=== PATIENT | male | born 1965 | race Two or more races ===

== ENCOUNTER 2019-04-09 08:10 | Emergency (ER) | payer SELFPAY ==
[~2019-04-09] VITALS: Ht 152.4 cm; Wt 88.5 kg
[2019-04-09 08:13] VITALS: Ht 152.4 cm; Wt 88.5 kg
[2019-04-09 08:57] LABS: BASOPHIL % 0.7 % (0-2); PLATELET COUNT 149 x10^3mcL (130-400)
[2019-04-09 08:58] LABS: RED CELL DISTRIBUTION WIDTH 15.3 % (11.5-14.5)
[2019-04-09 08:59] LABS: CALCIUM 8.5 mg/dL (8.5-10.1); CARBON DIOXIDE 34.4 mmol/L (21-32); CHLORIDE SERUM 104 mmol/L (98-107); CREATININE SERUM 0.9 mg/dL (0.7-1.3); GFR1 > 60 mL/min; GLUCOSE SERUM 98 mg/dL (74-106); POTASSIUM SERUM 4.2 mmol/L (3.5-5.1); SODIUM SERUM 139 mmol/L (136-145)
[2019-04-09 09:04] LABS: ALBUMIN 3.2 g/dL (3.4-5.0); ALKALINE PHOSPHATASE 126 U/L (46-116); ALT/SGPT 56 U/L (16-63); AST/SGOT 33 U/L (15-37); BILIRUBIN TOTAL 1.23 mg/dL (0.20-1.00); TOTAL PROTEIN, SERUM 7.3 g/dL (6.4-8.2)
[2019-04-09 10:37] LABS: MAGNESIUM 2.1 mg/dL (1.8-2.4); PHOSPHOROUS 3.3 mg/dL (2.5-4.9)
[2019-04-09 10:38] LABS: T3 TOTAL 1.25 ng/mL
[2019-04-09 10:51] LABS: CHOLESTEROL/HDL RATIO 2.3
[2019-04-09 11:17] LABS: FREE T4 1.04 ng/dL (0.76-1.46); FREE THYROXINE INDEX 3.1 ug/dL (1.4-4.5); T4(THYROXINE) 8.8 ug/dL (4.7-13.3)
[2019-04-09 16:02] VITALS: BP 104/66
== END 2019-04-09 16:02 | disposition short-term general hospital (02) ==
LOC: ED 08:10 → DU 09:54 → ED 09:54
PROVIDERS: Emergency Medicine; Internal Medicine
DX: J96.91 Respiratory failure, unspecified with hypoxia (principal); J90 Pleural effusion, not elsewhere classified; F17.200 Nicotine dependence, unspecified, uncomplicated
CPT/HCPCS: 31500; 36600; 83880; 84439; 85378; J2250; J2543; J2704; J7613; J7644; Q0092

== ENCOUNTER 2019-05-07 16:40 | Emergency (ER) | payer SELFPAY ==
[~2019-05-07] VITALS: Ht 154.9 cm; Wt 77.6 kg
[2019-05-07 16:46] VITALS: BP 117/85; Ht 154.9 cm; Wt 77.6 kg
== END 2019-05-07 17:19 | disposition home or self-care (01) ==
LOC: ED 16:40
DX: Z46.89 Encounter for fitting and adjustment of other specified devices (principal)